=== PATIENT | male | born 1970 | race Asian ===

== ENCOUNTER 2023-06-10 12:41 | Outpatient (CLI) | payer OTHER, SELFPAY ==
--- NOTE | ~2023-06-10 | US_ITS ---
EXAMINATION: US soft tissue head and neck DATE: 06/10/2023 12:56 INDICATION: Sialadenitis. Right jaw lump. TECHNIQUE: Multiple grayscale and Doppler ultrasound images of the head and neck were obtained. COMPARISON: None FINDINGS: There is a normal lymph node in the right parotid gland in the patient's area of concern. IMPRESSION: 1. Normal lymph node in the right parotid gland in the patient's area of concern. Reviewed, dictated and finalized at location A. IMPRESSION: 1. Normal lymph node in the right parotid gland in the patient's area of concer n.
== END 2023-06-10 12:42 ==
PROVIDERS: PCP Emergency Medicine; Visit Provider Emergency Medicine
DX: K11.20 Sialoadenitis, unspecified (principal)
CPT/HCPCS: 76536

== ENCOUNTER 2023-06-10 12:56 | Outpatient (CLI) | payer OTHER, SELFPAY ==
[2023-06-10 20:23] LABS: Anion Gap 8 mmol/L (4-12); Blood Urea Nitrogen 11 mg/dL (9-20); Carbon Dioxide 29 mmol/L (22-30); Chloride 105 mmol/L (98-107); Cholesterol 148 mg/dL (0-200); Estimated Glomerular Filt Rate > 60; Glucose 138 mg/dL (65-110); HDL Direct 42 mg/dL; Potassium 3.9 mmol/L (3.4-5.0); Sodium 142 mmol/L (137-145); Triglycerides 193 mg/dL (<150)
[2023-06-10 20:34] LABS: LDL Cholesterol Direct 83 mg/dL
[2023-06-10 21:15] LABS: Hemoglobin A1C 6.4 % (<5.7)
[2023-06-10 23:36] LABS: Prostate Specific Antigen 0.8 ng/mL (< OR = 4.0)
== END 2023-06-10 12:57 | disposition home or self-care (01) ==
PROVIDERS: PCP Emergency Medicine; Visit Provider Emergency Medicine
DX: E11.40 Type 2 diabetes mellitus with diabetic neuropathy, unspecified (principal); Z12.11 Encounter for screening for malignant neoplasm of colon; Z12.5 Encounter for screening for malignant neoplasm of prostate
CPT/HCPCS: 36415; 80048; 80061; 83036; 84153; G0103